=== PATIENT | female | born 1945 | race Caucasian/White ===

== ENCOUNTER 2021-08-29 14:09 | Inpatient (IN) | payer BC, MEDICARE ==
[~2021-08-29] VITALS: Ht 149.9 cm; Wt 75.0 kg
[~2021-08-29 14:09] MED LIST: ALBU8.5H4 IH; PRED20TA PO
[2021-08-29 14:57] LABS: BASOPHILS # (AUTO) 0.1 X10'3 (0-0.2); BASOPHILS % (AUTO) 0.4 % (0-1); EOSINOPHILS # (AUTO) 0.2 X10'3 (0-0.9); EOSINOPHILS % (AUTO) 1.5 % (0-6); HEMATOCRIT 34.4 % (35.0-45.0); HEMOGLOBIN 11.1 g/dl (12.0-16.0); LYMPHOCYTES # (AUTO) 1.4 X10'3 (1.1-4.8); LYMPHOCYTES % (AUTO) 11.8 % (21-51); MEAN CORPUSCULAR HEMOGLOBIN 28.7 PG (27.0-31.0); MEAN CORPUSCULAR HGB CONC 32.3 g/dL (33.0-36.5); MEAN CORPUSCULAR VOLUME 88.8 FL (78-98); MEAN PLATELET VOLUME 8.8 FL (7.4-10.4); MONOCYTES # (AUTO) 0.6 X10'3 (0-0.9); MONOCYTES % (AUTO) 4.7 % (2-12); NEUTROPHILS # (AUTO) 9.9 X10'3 (1.8-7.7); NEUTROPHILS % (AUTO) 81.6 % (42-75); PLATELET COUNT 232 X10'3 (140-440); RED BLOOD COUNT 3.87 X10'6 (4.20-5.60); WHITE BLOOD COUNT 12.2 X10'3 (4.5-11.0)
[2021-08-29 15:09] LABS: APTT 25 SECONDS (22-32)
[2021-08-29 15:13] LABS: ALANINE AMINOTRANSFERASE 14 U/L (12-78); ALBUMIN 3.3 G/DL (3.4-5.0); ALBUMIN/GLOBULIN RATIO 0.8 (1.1-1.5); ALKALINE PHOSPHATASE 68 IU/L (46-116); ANION GAP 10 (8-16); ASPARTATE AMINO TRANSFERASE 16 U/L (10-37); BILIRUBIN,TOTAL 0.2 MG/DL (0.1-1.0); BLOOD UREA NITROGEN 44 MG/DL (7-18); BUN/CREATININE RATIO 25.9 (6.6-38.0); CALCIUM 8.5 MG/DL (8.5-10.1); CHLORIDE 101 MMOL/L (99-107); GLUCOSE 175 MG/DL (70-104); POTASSIUM 5.3 MMOL/L (3.5-5.1); SODIUM 132 MMOL/L (135-145); TOTAL CARBON DIOXIDE 20.8 MMOL/L (24-32); TOTAL PROTEIN 7.3 G/DL (6.4-8.2); eGFR 29 ML/MIN
[2021-08-29] MEDS ORDERED: morphine 2 MG/ML inj. syringe IV PRN (16:25)
[2021-08-29] MEDS ORDERED: magnesium Cl slow-release 64mg tablet PO PRN (16:25)
[2021-08-29] MEDS ORDERED: magnesium 4gm in 100ml NS 100 ML IV PRN (16:25)
[2021-08-29] MEDS ORDERED: POTASSIUM BICARB 20meq eff tab 20 MEQ TABLET.EFF PO PRN ×2 (16:25)
[2021-08-29] MEDS ORDERED: potassium CL 10mEq/100ml bag 100 ML IV PRN (16:25)
[2021-08-29] MEDS ORDERED: ondansetron/PF 4mg/2ml inj IV PRN (16:25)
[2021-08-29] MEDS ORDERED: magnesium 2GM in 50ml NS 50 ML IV PRN (16:25)
[2021-08-29] MEDS ORDERED: acetaminophen 325mg tablet PO PRN (16:25)
[2021-08-29] MEDS ORDERED: glucagon, human recombinant 1mg kit SUBCUT PRN (16:30)
[2021-08-29] MEDS ORDERED: MESSAGE TO PHARMACY PO ONE (16:30)
[2021-08-29] MEDS ORDERED: DEXTROSE 15 GM of carb/4 tabs (each vial/BOTTLE has 4 tablets) PO PRN ×2 (16:30)
[2021-08-29] MEDS ORDERED: insulin Lispro (HumaLOG) vial - multi-dose SQ SCH (16:30)
[2021-08-29] MEDS ORDERED: dextrose 50%-water 50ml dispensing syringe IV PRN ×2 (16:30)
--- NOTE | 2021-08-29 17:15 | NUR ---
RELIEVING RN FOR BREAK, DR RENTERIA CALLED BACK, SHE IS AWARE OF TROPONIN LEVEL, NO INTERVENTION NEEDED AT THIS TIME
[2021-08-29] MEDS: normal saline 1000ml 1,000 ML IV SCH (17:31)
--- NOTE | 2021-08-29 18:49 | NUR ---
Assumed care of patient. No acute issues noted. Patient has bed upstairs and awaiting to be able to give handoff report.
[2021-08-29] MEDS ORDERED: MAGN400T56 PO (19:19)
[2021-08-29] MEDS ORDERED: DULO60CA65 PO (19:19)
[2021-08-29] MEDS ORDERED: CLOP75TA34 PO (19:19)
[2021-08-29] MEDS ORDERED: CELE-85 PO (19:19)
[2021-08-29] MEDS ORDERED: GLIM4TAB PO (19:19)
[2021-08-29] MEDS ORDERED: BACL10TA2 PO (19:19)
[2021-08-29] MEDS ORDERED: PRAV40TA3 PO (19:19)
[2021-08-29] MEDS ORDERED: HYDR25TA4 PO (19:19)
[2021-08-29] MEDS ORDERED: METF-900 PO (19:19)
[2021-08-29] MEDS ORDERED: NORT10CA2 PO (19:19)
[2021-08-29] MEDS ORDERED: BENA40TA90 PO (19:19)
[2021-08-29] MEDS ORDERED: CARV12.549 PO (19:19)
[2021-08-29] MEDS ORDERED: GLIM4TAB7 PO (19:19)
[2021-08-29 19:30] VITALS: BP 148/52
[2021-08-29] MEDS: K and/or MAG REPLACEMENT MC SCH (20:00)
[2021-08-29] MEDS: insulin glargine (Lantus) pen - multi-dose SQ SCH (21:00)
[2021-08-29] MEDS: heparin, porcine 5000 units/ml vial SQ SCH (21:56)
[2021-08-30] VITALS (8 sets, daily range): BP systolic 94–151; BP diastolic 42–74
[2021-08-30] MEDS: normal saline 1000ml 1,000 ML IV SCH ×3 (02:32→22:32)
[2021-08-30] MEDS: temazepam 15mg capsule PO PRN ×2 (02:58→22:08)
[2021-08-30 06:05] LABS: BASOPHILS % (AUTO) 0.6 % (0-1); EOSINOPHILS # (AUTO) 0.1 X10'3 (0-0.9); EOSINOPHILS % (AUTO) 1.9 % (0-6); HEMATOCRIT 36.2 % (35.0-45.0); HEMOGLOBIN 11.9 g/dl (12.0-16.0); LYMPHOCYTES # (AUTO) 1.9 X10'3 (1.1-4.8); MEAN CORPUSCULAR HEMOGLOBIN 28.7 PG (27.0-31.0); MEAN CORPUSCULAR HGB CONC 32.9 g/dL (33.0-36.5); MEAN CORPUSCULAR VOLUME 87.3 FL (78-98); MEAN PLATELET VOLUME 8.7 FL (7.4-10.4); MONOCYTES # (AUTO) 0.5 X10'3 (0-0.9); MONOCYTES % (AUTO) 6.9 % (2-12); NEUTROPHILS % (AUTO) 65.6 % (42-75); PLATELET COUNT 234 X10'3 (140-440); RED BLOOD COUNT 4.15 X10'6 (4.20-5.60); RED CELL DISTRIBUTION WIDTH 14.8 % (11.5-14.5); WHITE BLOOD COUNT 7.7 X10'3 (4.5-11.0)
[2021-08-30 06:30] LABS: ALANINE AMINOTRANSFERASE 16 U/L (12-78); ALBUMIN 3.3 G/DL (3.4-5.0); ALBUMIN/GLOBULIN RATIO 0.8 (1.1-1.5); ALKALINE PHOSPHATASE 65 IU/L (46-116); ANION GAP 9 (8-16); ASPARTATE AMINO TRANSFERASE 16 U/L (10-37); BILIRUBIN,TOTAL 0.2 MG/DL (0.1-1.0); BLOOD UREA NITROGEN 34 MG/DL (7-18); BUN/CREATININE RATIO 24.8 (6.6-38.0); CALCIUM 8.5 MG/DL (8.5-10.1); CHLORIDE 105 MMOL/L (99-107); CHOL/HDL RATIO 3.1 (0.00-4.99); CHOLESTEROL 142 MG/DL (0-200); CREATININE 1.37 MG/DL (0.40-0.90); GLUCOSE 62 MG/DL (70-104); HDL CHOLESTEROL 46 MG/DL (35-60); LDL CHOLESTEROL 58 MG/DL (50-100); POTASSIUM 4.7 MMOL/L (3.5-5.1); SODIUM 137 MMOL/L (135-145); TOTAL CARBON DIOXIDE 22.8 MMOL/L (24-32); TOTAL PROTEIN 7.5 G/DL (6.4-8.2); TRIGLYCERIDES 199 MG/DL (20-135); eGFR 37 ML/MIN
[2021-08-30] MEDS: K and/or MAG REPLACEMENT MC SCH ×2 (08:00→20:00)
[2021-08-30] MEDS: heparin, porcine 5000 units/ml vial SQ SCH ×2 (08:50→22:07)
[2021-08-30] MEDS: acetaminophen 325mg tablet PO PRN (11:46)
[2021-08-30] MEDS: insulin glargine (Lantus) pen - multi-dose SQ SCH (21:00)
[2021-08-30] MEDS: nortriptyline 10mg capsule PO SCH (22:08)
[2021-08-31 02:07] VITALS: BP 147/62
[2021-08-31 06:00] VITALS: BP 118/53
[2021-08-31 06:24] LABS: BASOPHILS % (AUTO) 0.7 % (0-1); EOSINOPHILS # (AUTO) 0.2 X10'3 (0-0.9); EOSINOPHILS % (AUTO) 2.6 % (0-6); HEMATOCRIT 33.3 % (35.0-45.0); HEMOGLOBIN 10.7 g/dl (12.0-16.0); LYMPHOCYTES # (AUTO) 1.7 X10'3 (1.1-4.8); LYMPHOCYTES % (AUTO) 23.4 % (21-51); MEAN CORPUSCULAR HEMOGLOBIN 28.4 PG (27.0-31.0); MEAN CORPUSCULAR HGB CONC 32.1 g/dL (33.0-36.5); MEAN CORPUSCULAR VOLUME 88.6 FL (78-98); MEAN PLATELET VOLUME 8.9 FL (7.4-10.4); MONOCYTES # (AUTO) 0.6 X10'3 (0-0.9); MONOCYTES % (AUTO) 8.3 % (2-12); NEUTROPHILS # (AUTO) 4.6 X10'3 (1.8-7.7); PLATELET COUNT 217 X10'3 (140-440); RED BLOOD COUNT 3.75 X10'6 (4.20-5.60); RED CELL DISTRIBUTION WIDTH 15.3 % (11.5-14.5); WHITE BLOOD COUNT 7.1 X10'3 (4.5-11.0)
[2021-08-31 06:48] LABS: ALANINE AMINOTRANSFERASE 16 U/L (12-78); ALBUMIN 2.9 G/DL (3.4-5.0); ALBUMIN/GLOBULIN RATIO 0.8 (1.1-1.5); ALKALINE PHOSPHATASE 57 IU/L (46-116); ANION GAP 5 (8-16); ASPARTATE AMINO TRANSFERASE 14 U/L (10-37); BILIRUBIN,TOTAL 0.2 MG/DL (0.1-1.0); BLOOD UREA NITROGEN 23 MG/DL (7-18); BUN/CREATININE RATIO 20.4 (6.6-38.0); CALCIUM 8.3 MG/DL (8.5-10.1); CHLORIDE 108 MMOL/L (99-107); CREATININE 1.13 MG/DL (0.40-0.90); GLUCOSE 100 MG/DL (70-104); POTASSIUM 4.8 MMOL/L (3.5-5.1); SODIUM 140 MMOL/L (135-145); TOTAL PROTEIN 6.7 G/DL (6.4-8.2); eGFR 47 ML/MIN
[2021-08-31] MEDS: K and/or MAG REPLACEMENT MC SCH ×2 (08:00→20:00)
[2021-08-31] MEDS: normal saline 1000ml 1,000 ML IV SCH ×2 (08:32→18:32)
[2021-08-31] MEDS: magnesium oxide 400mg tablet PO SCH (09:07)
[2021-08-31] MEDS: heparin, porcine 5000 units/ml vial SQ SCH ×2 (09:07→20:12)
[2021-08-31] MEDS: lisinopril 10 MG tablet PO SCH (09:07)
[2021-08-31] MEDS: clopidogrel 75mg tablet PO SCH (09:07)
[2021-08-31] MEDS: carVEDilol 12.5mg tablet PO SCH (09:08)
[2021-08-31] MEDS ORDERED: METF-900 PO (10:34)
[2021-08-31] MEDS ORDERED: LISI10TA27 PO (10:34)
[2021-08-31] MEDS ORDERED: DULO60CA65 PO (10:34)
[2021-08-31 11:00] VITALS: BP 140/54
--- NOTE | 2021-08-31 13:44 | NUR ---
O2 Sat at rest on room air:__88_% If below 89%: Recovery O2 Sat at rest on _2_LPM:__96_%:___% via____cannula (mask/nasal cannula, etc..) No further documentation is necessary. If O2 Sat did not drop below 89% on room air,ambulate patient on room air. O2 Sat while ambulating on room air:___% Recovery O2 Sat while ambulating on ___LPM:___% No further documentation is necessary. If patient does not drop below 89% while ambulating, he/she does not qualify for home O2.
[2021-08-31 15:00] VITALS: BP 125/68
[2021-08-31 18:00] VITALS: BP 130/61
[2021-08-31] MEDS: nortriptyline 10mg capsule PO SCH (20:10)
[2021-08-31] MEDS: temazepam 15mg capsule PO PRN (20:11)
[2021-08-31] MEDS: insulin glargine (Lantus) pen - multi-dose SQ SCH (21:00)
[2021-08-31] MEDS ORDERED: pravastatin 40mg tablet PO SCH (21:00)
[2021-08-31 22:00] VITALS: BP 129/56
[2021-08-31] MEDS: acetaminophen 325mg tablet PO PRN (23:33)
[2021-09-01 06:00] VITALS: BP 126/52
[2021-09-01 06:20] LABS: BASOPHILS % (AUTO) 0.5 % (0-1); EOSINOPHILS # (AUTO) 0.2 X10'3 (0-0.9); EOSINOPHILS % (AUTO) 2.6 % (0-6); HEMATOCRIT 32.4 % (35.0-45.0); HEMOGLOBIN 10.4 g/dl (12.0-16.0); LYMPHOCYTES # (AUTO) 1.8 X10'3 (1.1-4.8); LYMPHOCYTES % (AUTO) 23.7 % (21-51); MEAN CORPUSCULAR HEMOGLOBIN 27.7 PG (27.0-31.0); MEAN CORPUSCULAR HGB CONC 32.1 g/dL (33.0-36.5); MEAN CORPUSCULAR VOLUME 86.3 FL (78-98); MEAN PLATELET VOLUME 8.7 FL (7.4-10.4); MONOCYTES # (AUTO) 0.9 X10'3 (0-0.9); MONOCYTES % (AUTO) 12.3 % (2-12); NEUTROPHILS # (AUTO) 4.5 X10'3 (1.8-7.7); NEUTROPHILS % (AUTO) 60.9 % (42-75); PLATELET COUNT 195 X10'3 (140-440); RED BLOOD COUNT 3.76 X10'6 (4.20-5.60); RED CELL DISTRIBUTION WIDTH 14.9 % (11.5-14.5); WHITE BLOOD COUNT 7.5 X10'3 (4.5-11.0)
--- NOTE | 2021-09-01 06:45 | NUR ---
Patient in room PCU [id number]. I have received report from ROBYN GUZMAN, and had the opportunity to ask questions and assume patient care.
[2021-09-01 06:50] LABS: ALANINE AMINOTRANSFERASE 15 U/L (12-78); ALBUMIN 2.8 G/DL (3.4-5.0); ALBUMIN/GLOBULIN RATIO 0.7 (1.1-1.5); ALKALINE PHOSPHATASE 55 IU/L (46-116); ANION GAP 6 (8-16); ASPARTATE AMINO TRANSFERASE 16 U/L (10-37); BILIRUBIN,TOTAL 0.3 MG/DL (0.1-1.0); BLOOD UREA NITROGEN 21 MG/DL (7-18); BUN/CREATININE RATIO 18.6 (6.6-38.0); CALCIUM 8.5 MG/DL (8.5-10.1); CHLORIDE 105 MMOL/L (99-107); CREATININE 1.13 MG/DL (0.40-0.90); GLUCOSE 119 MG/DL (70-104); POTASSIUM 4.6 MMOL/L (3.5-5.1); SODIUM 138 MMOL/L (135-145); TOTAL CARBON DIOXIDE 26.7 MMOL/L (24-32); TOTAL PROTEIN 6.7 G/DL (6.4-8.2); eGFR 47 ML/MIN
[2021-09-01] MEDS: K and/or MAG REPLACEMENT MC SCH (06:58)
[2021-09-01] MEDS: heparin, porcine 5000 units/ml vial SQ SCH (07:41)
[2021-09-01] MEDS: clopidogrel 75mg tablet PO SCH (07:41)
[2021-09-01 07:42] VITALS: BP_SYST 128
[2021-09-01] MEDS: magnesium oxide 400mg tablet PO SCH (07:42)
[2021-09-01] MEDS: carVEDilol 12.5mg tablet PO SCH (07:42)
[2021-09-01] MEDS: lisinopril 10 MG tablet PO SCH (07:42)
--- NOTE | 2021-09-01 10:43 | NUR ---
PT STABLE FOR DISCHARGE PER MD. TELE BOX REMOVED. PIV REMOVED WITH TIP INTACT. DISCHARGE AND FOLLOW UP INSTRUCTIONS WERE REVIEWED WITH PT AND DAUGHTER.APPROPRIATE PAPERWORK SIGNED. PT DISCHARGED TO HOME. PT TAKEN TO PRIVATE VEHICLE BY HOSPITAL STAFF.
== END 2021-09-01 10:40 | disposition home or self-care (01) | DRG 312 ==
LOC: ER 14:09 → ED HOLD 16:29 → PCU 3S 19:45
PROVIDERS: ADMIT Internal Medicine; ATTEND Internal Medicine
PROC: 4A10X4Z Monitoring of Central Nervous Electrical Activity, External Approach (ICD-10-PCS; principal; 2021-08-30)
DX: R55 Syncope and collapse (principal); J96.00 Acute respiratory failure, unspecified whether with hypoxia or hypercapnia; N17.9 Acute kidney failure, unspecified; I13.0 Hypertensive heart and chronic kidney disease with heart failure and stage 1 through stage 4 chronic kidney disease, or unspecified chronic kidney disease; E11.22 Type 2 diabetes mellitus with diabetic chronic kidney disease; M79.7 Fibromyalgia; M17.0 Bilateral primary osteoarthritis of knee; N18.30 Chronic kidney disease, stage 3 unspecified; M35.3 Polymyalgia rheumatica; T38.3X5A Adverse effect of insulin and oral hypoglycemic [antidiabetic] drugs, initial encounter; I65.21 Occlusion and stenosis of right carotid artery; T42.8X5A Adverse effect of antiparkinsonism drugs and other central muscle-tone depressants, initial encounter; K21.9 Gastro-esophageal reflux disease without esophagitis; I20.9 Angina pectoris, unspecified; E78.00 Pure hypercholesterolemia, unspecified; W06.XXXA Fall from bed, initial encounter; E78.5 Hyperlipidemia, unspecified; G89.29 Other chronic pain; I48.0 Paroxysmal atrial fibrillation; I50.9 Heart failure, unspecified; J45.909 Unspecified asthma, uncomplicated; M81.0 Age-related osteoporosis without current pathological fracture; M54.9 Dorsalgia, unspecified; Z79.84 Long term (current) use of oral hypoglycemic drugs; Z79.01 Long term (current) use of anticoagulants; Z79.899 Other long term (current) drug therapy; Y93.89 Activity, other specified; Y92.098 Other place in other non-institutional residence as the place of occurrence of the external cause; Y99.8 Other external cause status
CPT/HCPCS: 36415; 70450; 70551; 71045; 80053; 80061; 82948; 83036; 83880; 84484; 85025; 85610; 85730; 87081; 93005; 93306; 93880; 95816; 97116; 97161; 97530; 99285; G0378; J1644; J1815; J7030